=== PATIENT | female | born 1955 | race Caucasian/White ===

== ENCOUNTER → 2023-10-28 08:14 | Outpatient (REF) | payer MEDICARE, OTHER, SELFPAY ==
[2023-10-28 12:44] LABS: ALT (SGPT) 43 U/L (0-35); AST (SGOT) 38 U/L (14-36); Albumin 4.2 g/dl (3.5-5.0); Alkaline Phosphatase 74 U/L (38-126); Blood Urea Nitrogen 20 mg/dl (7-17); Calcium 9.7 mg/dl (8.4-10.2); Carbon Dioxide 30 mmol/L (22-30); Chloride 103 mmol/L (98-107); Glucose 102 mg/dl (70-99); HDL Cholesterol 87 mg/dl; LDL Cholesterol, Calculated 86 mg/dl; Potassium 4.6 mmol/L (3.5-5.1); Sodium 138 mmol/L (135-145); Total Bilirubin 0.5 mg/dl (0.2-1.3); Total Cholesterol 190 mg/dl (50-199); Total Protein 6.9 g/dl (6.3-8.2); Triglyceride 85 mg/dl (10-149); Very Low Density Lipoprotein 17 mg/dl (0-30); eGFR > 60.00
== END ==
LOC: REG 08:14
PROVIDERS: ATTENDING PHYSICIAN Internal Medicine Interventional Cardiology; FAMILY PHYSICIAN Internal Medicine
DX: E78.2 Mixed hyperlipidemia (principal)
CPT/HCPCS: 36415; 80053; 80061

== ENCOUNTER → 2023-11-26 08:49 | Outpatient (REF) | payer MEDICARE, OTHER, SELFPAY | LOC: MRI 3T 08:49 | PROVIDERS: ATTENDING PHYSICIAN Psychiatry & Neurology Behavioral Neurology & Neuropsychiatry; FAMILY PHYSICIAN Internal Medicine | DX: G30.9 Alzheimer's disease, unspecified (principal) | CPT/HCPCS: 70551 ==

== ENCOUNTER 2024-01-16 15:23 | Observation (INO) | payer MEDICARE, OTHER, SELFPAY ==
[2024-01-16] VITALS (10 sets, daily range): BP systolic 109–131; BP diastolic 68–81; BMI 28.3
[2024-01-16 12:39] LABS: Hematocrit 36.8 % (37.0-47.0); Hemoglobin 12.6 g/dL (12.0-16.0); Mean Corp Hgb Conc. 34.2 g/dL (33.0-37.0); Mean Corpuscular Volume 90.6 fL (81.0-99.0); Mean Platelet Volume 9.4 fL (7.4-10.4); Platelet Count 328 10^3/uL (130-400); Red Blood Cell Count 4.06 10^6/uL (4.20-5.40); Red Cell Dist. Width 13.5 % (11.5-14.5); White Blood Cell Count 9.1 10^3/uL (4.8-10.8)
[2024-01-16 12:49] LABS: INR 1.12; PT 14.2 Sec (11.4-14.6)
[2024-01-16 12:53] LABS: % Basophils 1.2 % (0-2); % Eosinophils 0.1 % (0-6); % Immature Granulocytes 0.2 % (0-0.5); % Lymphocytes 66.6 % (20.5-51.1); % Monocytes 6.7 % (1.7-9.3); % Neutrophils 25.2 % (42.2-75.2); Absolute Basophils 0.1 10^3/uL (0-0.2); Absolute Lymphocytes 6.1 10^3/uL (1.2-3.4); Absolute Monocytes 0.6 10^3/uL (0.1-0.6); Absolute Neutrophils 2.3 10^3/uL (1.4-6.5); Nucleated Red Blood Cells % 0 %
[2024-01-16 12:58] LABS: ALT (SGPT) 91 U/L (0-35); AST (SGOT) 51 U/L (14-36); Albumin 3.9 g/dl (3.5-5.0); Alkaline Phosphatase 300 U/L (38-126); Blood Urea Nitrogen 16 mg/dl (7-17); Calcium 9.4 mg/dl (8.4-10.2); Carbon Dioxide 25 mmol/L (22-30); Chloride 103 mmol/L (98-107); Glucose 129 mg/dl (70-99); Potassium 4.8 mmol/L (3.5-5.1); Sodium 134 mmol/L (135-145); Total Bilirubin 0.7 mg/dl (0.2-1.3); Total Protein 7.3 g/dl (6.3-8.2); eGFR > 60.00
[2024-01-16 13:00] LABS: Troponin I < 0.012 ng/ml
[2024-01-16 13:52] LABS: Urine Albumin Negative (Neg - Trace); Urine Bilirubin Negative (Negative); Urine Character Clear (Clear); Urine Color Yellow; Urine Glucose Negative (Negative); Urine Ketone Negative (Negative); Urine Leukocyte Negative (Negative); Urine Nitrite Negative (Negative); Urine Occult Blood Negative (Negative); Urine Urobilinogen Negative (Neg - 1+)
--- NOTE | 2024-01-16 14:27 | ED.GENMED ---
History of Present Illness
General
Chief Complaint: Change in Mental Status
Source: patient and spouse
Exam Limitations: none
Time Seen by Provider: 01/16/24 12:20
Nursing documentation reviewed up to this point in time: agreed with
History of Present Illness
History of Present Illness:
Patient with Alzheimer's disease, presents to ED after she was noted to have right facial droop during scheduled outpatient infusion treatment for her underlying Alzheimer's disease. Per , he does not recall if patient had facial asymmetry
this morning when she woke up. Otherwise, patient herself has no complaints. Denies headache. Denies dizziness. Denies blurred vision. Denies loss of sensation or weakness. Denies difficulty with speech. Of note, for the past 2 weeks, patient
has had fever with increased confusion. has spoken with her primary care physician and patient has completed course of antibiotics, i.e. Macrobid x 7 days. When her symptoms persisted, patient went to local urgent care center where she was
started on different antibiotics, which she is still taking.
Past History
Past History
ED Past Medical History: HTN; Negative Arrthythmia
Social History
Personal:
Living: with family
Review of Systems
Review of Systems
Allergies reviewed?: Yes
All Other Systems: ROS reviewed and negative except as documented in HPI and ROS
Constitutional: Reports fever
EENT: Reports no symptoms
Respiratory: Reports no symptoms
Cardiac: Reports no symptoms
ABD/GI: Reports no symptoms
Musculoskeletal: Reports no symptoms
Skin: Reports no symptoms
Neurological: Reports other (facial droop with increased confusion)
Phy Exam
Physical Exam
Physical Exam:
Physical Exam
General: no apparent distress, not acutely ill. afebrile.
Head: nc/at. eomi
Neck: supple. no meningeal signs.
Heart: s1/s2 regular rate and rhythm, no murmur. equal radial pulses.
Lungs: no acute respiratory distress. clear bilaterally
Abdomen: normal bowel sounds. not tender.
Neuro: alert and oriented. no focal neurological deficits
Skin: no rash
Psychiatric: well kept. interactive and cooperative
Extremities: no edema. no calf tenderness.
Course
Orders/Labs/Results
Orders:
Orders
01/16/24 12:[address] [CT Head W/o Iv Contrast] Urgent
Comment:
Reason For Exam: stroke alert right facial droop
01/16/24 12:29
Complete Blood Count/With Diff Urgent
Comprehensive Metabolic Panel Urgent
Glycohemoglobin (HgbA1c) Urgent
PTT Urgent
Prothrombin Time Urgent
Troponin I Urgent
01/16/24 12:39
Electrocardiogram (*1) Urgent
Reason for Study: TIA/Stroke
EKG- Treatment ONCE
01/16/24 13:25
Urinalysis Reflex To Culture Urgent
Date Specimen was Collected: 01/16/24
Time Specimen was Collected: 13:23
01/16/24 14:26
Aspirin Chewable [Low Strength Aspirin] 324 mg PO NOW STA
01/16/24 14:41
NIH Stroke Scale As Directed
Neurological Checks As Directed
Frequency: Per unit guidelines
01/16/24 14:57
Admit/Transfer Patient As Directed
Co-Sign Provider:
Level of Care: Observation services
Assign to:: Telemetry
Physician / Group: grecia
Diagnosis: CVA
Reason for Telemetry: CVA/TIA
Date to Stop Telemetry: 01/19/24
Time to Stop Telemetry: 11:00
PRN Pain Medication Management As Directed
May give lesser potent ordered pain med per pt: Yes
preference::
Protocol:: Medication orders for pain may be administered in a
manner that supports deferring to patient preference
when the pt is:
- Requesting an ordered lesser potent pain medication.
Least to most potent pain medications are defined
as: acetaminophen < NSAID < tramadol < opioids
(morphine, oxycodone, hydromorphone).
- Requesting a lesser dose of the same medication IF
ORDERED.
- Requesting a less intrusive route of administration
if both routes are prescribed by the provider (PO <
IV).
01/16/24 14:59
Code Status As Directed
Resuscitation Status: Full Code
01/16/24 16:20
Acetaminophen [Tylenol/Feverall] 650 mg RECTAL Q4HPRN PRN
Acetaminophen [Tylenol] 650 mg PO Q4HPRN PRN
01/16/24 16:20
Case Management Consult ONCE
Case Management Consult: Discharge Planning
Comment: stroke/tia
DIETARY CONSULT Routine
Reason for Consult: stroke/TIA
NEUROLOGY CONSULT Urgent
Consulting Provider: Ronald Lopez
Was physician already notified: Yes
Supervisor [place] Urgent
Activity As Directed
Activity Level: As Tolerated
Patient Education As Directed
Type: Stroke education packet
Comment: provide to patient and family
Pneumatic Compression Sleeves As Directed
Type: Thigh high
Swallow Screening CVA/TIA ONLY As Directed
Comment: NPO until swallowing screening completed
If patient FAILS swallow screening:: NPO, Speech Therapy consult, Aspiration Precautions
If patient PASSES swallow screening, diet:: Cholesterol Lowering
Above diet order entered?: Yes- passed screening
Vital Signs As Directed
Frequency: Per unit guidelines
Ot Eval And Treat Routine
Pt Eval And Treat Routine
Activity Level: As Tolerated
Speech Therapy Eval & Treat Routine
DX Deep Vein Thrombosis Video Routine
01/16/24 18:00
Atorvastatin [Lipitor] 40 mg PO QPM
01/16/24 22:00
Cetirizine HCl [Zyrtec] 10 mg PO HS
Donepezil [Aricept] 5 mg PO HS
Sertraline HCl [Zoloft] 25 mg PO HS
01/17/24 05:45
Cardiovascular Evaluation IN AM
Complete Blood Count/No Diff IN AM
01/17/24 07:30
Echo 2D MMode Color/Doppler Routine
Reason for Study: Thrombotic source for stroke-like sxs
01/17/24 08:00
Aspirin Chewable [Low Strength Aspirin] 81 mg PO DAILY
Cholecalciferol (Vitamin D3) [VITAMIN D3 (cholecalciferol)] 25 mcg PO DAILY
Losartan [Cozaar] 25 mg PO DAILY
01/17/24 14:41
MA [place] Routine
Reason For Exam: intracranial stenosis
Recent pill cam endoscopy?: No
MA Neck With Contrast Routine
Reason For Exam: stenosis
Recent pill cam endoscopy?: No
MR Brain Without Contrast Routine
Reason For Exam: Right facial droop ? L hemisphere infarct vs darleen
Recent pill cam endoscopy?: No
01/19/24 11:00
DC Protocol for Telemetry ONCE
Abnormal Lab Results
01/16/24
12:29
RBC 4.06 L 10^6/uL
(4.20-5.40)
Hct 36.8 L %
(37.0-47.0)
Absolute Lymphs (auto) 6.1 H 10^3/uL
(1.2-3.4)
Neutrophils % 25.2 L %
(42.2-75.2)
Lymphocytes % 66.6 H %
(20.5-51.1)
Sodium 134 L mmol/L
(135-145)
Glucose 129 H mg/dl
(70-99)
Hemoglobin A1c 6.5 H %
(4.0-5.6)
AST 51 H U/L
(14-36)
ALT 91 H U/L
(0-35)
Alkaline Phosphatase 300 H U/L
(38-126)
01/16/24 12:29
01/16/24 12:29
Vital Signs
Initial and Last Documented VS:
Initial Vital Signs
Temp Pulse Resp BP Pulse Ox
97.7 F 99 16 113/78 95
01/16/24 12:01 01/16/24 12:01 01/16/24 12:01 01/16/24 12:01 01/16/24 12:01
Last Documented Vital Signs
Temp Pulse Resp BP Pulse Ox
97.5 F 90 20 131/85 98
01/17/24 12:49 01/17/24 12:49 01/17/24 12:49 01/17/24 12:49 01/17/24 12:49
MDM/Problems Addressed
MDM/Problems Addressed:
Stroke alert activated immediately upon arrival, after initial evaluation. Patient also evaluated at bedside by Dr. Lopez, neurology.
CT head: No acute disease
History and exam concerning for possible CVA, with persistent mild right facial droop. Patient is not a candidate for TNKase treatment, secondary to low NIH score, as well as unclear time of onset of symptoms.
Dr. Lopez recommends admission for further evaluation and treatment, along with starting patient on aspirin only.
*Critical Care Note
Total Time (30-74mins, 75-104mins- exclusive of procedures): Not Applicable
ED Attending Note
-
Portions of this chart may have been created with voice recognition software.� Occasional wrong word or��sound alike� substitutions may have occurred due to the inherent limitations of voice recognition software.
Discharge Plan
Departure
Patient Disposition: Admit
Date of Disposition: 01/16/24
Time of Disposition: 14:46
Admit to: Telemetry
Presentation/result/management discussed w/ accepting MD/DO: Hospitalist
Discharge Problem:
Facial droop
Interventions
Interventions:
*Risk Screen - Suicide Last Done: 01/16/24 12:22
*General Assessment Last Done: 01/16/24 12:01
*Neglect/Abuse Screening Last Done: 01/16/24 12:22
ED- Fall Risk Assessment Last Done: 01/16/24 12:22
*ED COVID-19 Vaccine History Last Done: 01/16/24 12:01
*Nursing Disposition Last Done: 01/16/24 16:26
ED- Pulmonary Assessment Last Done: 01/16/24 12:22
ED-Psychological Assessment Last Done: 01/16/24 16:27
ED- Neurological Assessment Last Done: 01/16/24 12:22
ED- Cardiac Assessment Last Done: 01/16/24 12:22
ED Swallowing Screen Last Done: 01/16/24 15:00
Discharge Date and Time
Discharge Date/Time: 01/16/24 16:28
--- NOTE | 2024-01-16 14:34 | HPS.HSE ---
Addendum entered and electronically signed by Tej Helton MD 01/16/24 15:16:
I saw and examined the patient.
The ELEVATED WORK PLATFORM OPERATOR's note was reviewed and I agree with the note.
Comment:
68-year-old female past medical history of Alzheimer early onset dementia follows with [facility] neurologist Dr. Vee and was due to receive IV infusion for Lecanemab afterward that was not preceded. Patient with facial droop noticed by spouse
and thus decided to come into the ER. Patient was not a TNK candidate. No other focal neurological deficit. Patient remains pleasantly confused. Right-sided facial droop persist. CT head in the ER was negative.
General: Well Developed, Well Nourished and No Apparent Distress
HEENT: NormoCephalic, Moist mucous membranes and Atraumatic
Respiratory: Clear
Cardiac: S1/S2 and Regular Rhythm; No Murmur or Rub
GI: Soft, Non Tender, Non Distended and Normal Bowel Sounds; No Organomegaly
Rectal: Deferred by Provider
Musculoskeletal: No Clubbing, No Cyanosis and No Edema
Skin: No Rash
Neuro: AO x 3, Nonfocal/grossly intact and Other (Right facial droop)
Psych: Calm
Impression
New right-sided facial droop likely secondary TIA rule out CVA
Alzheimer's dementia
Primary hypertension
Mood disorder
Mild transaminitis
Plan
MRI ordered per neurology
Monitor on telemetry
Stroke scale and neurochecks
Aspirin ordered
Permissive hypertension
DVT ppx-scds for now
I spent a total of 78 minutes with the patient or on the floor. More than 50% of this time involved counseling and coordination of care.
Original Note:
Family Physician
-
Family Physician: Marshall Morel
Chief Complaint
-
right facial droop
History of Present Illness
68 year old with PMH for Alzheimer's disease, HTN, hyperlipidemia, dementia presented to us with right facial droop during scheduled outpatient infusion treatment for her underlying Alzheimer's disease. As per she complained of headache
this morning. She also stated dizziness with head position change. A week and half ago she was noted to have confusion and was not making any sense to all, which improved its on . Patient denied blurry vision, numbness, tingling .patient denied
chest pain or short of breath patient denied any focal weakness .patient denied abdominal pain, nausea, vomiting, diarrhea. Patient denied dysuria hematuria. patient has completed course of antibiotics, i.e. Macrobid x [address] with no acute findings. Admitting for further management
Medical History
Past Medical History
Past Medical History: Reports Other
Additional Past Medical History:
palpitation
Alzheimer disease
hld
dementia
HTN
type 2 DM
asthma
fibromyalgia
basal cell c
osteopenia
Past Surgical History: Reports None
Additional Past Surgical History:
Social History
Tobacco: Non-smoker
Alcohol: None
Drug: None
Family History
Family History: Not pertinent
Allergies / Home Medications
Allergies reflects when Allergies were last updated in [employer].
Home Medications with original date entered in [employer]
Allergy/Medication List:
Allergies
Allergy/AdvReac Type Severity Reaction Status Date / Time
aspirin [Aspirin] Allergy Unknown Verified 01/16/24 12:08
latex [Latex] Allergy Itching Verified 01/16/24 12:08
Penicillins Allergy Unknown Verified 01/16/24 12:08
sulfamethoxazole Allergy Rash Verified 01/16/24 12:08
[From Bactrim]
trimethoprim [From Bactrim] Allergy Rash Verified 01/16/24 12:08
environmental Allergy Unknown Uncoded 01/16/24 12:08
wheat Allergy Pharmacy Uncoded 01/16/24 12:08
to Review
Home Medications
Feosol 65 mg PO DAILY 10/21/09
aspirin 81 mg tablet,delayed release 81 mg PO DAILY 10/21/09
cetirizine 10 mg capsule (Zyrtec) 10 mg PO HS 10/21/09
ciclesonide 50 mcg nasal spray (Omnaris) 1 intranasal BID 10/21/09
cimetidine 300 mg tablet 300 mg PO BID 10/21/09
flaxseed oil 1,000 mg capsule 1,000 mg PO BID 10/21/09
glucosamin 375 mg-chond 300 mg-collagen 50 mg-hyaluronic acid 2 mg cap 1 cap PO DAILY 10/21/09
lisinopril 10 mg tablet 10 mg PO HS 10/21/09
multivitamin,Ca,min-folic acid-herbal no.160 100 mcg tablet 100 mcg PO DAILY 10/21/09
norethindrone acetate 0.5 mg-ethinyl estradiol 2.5 mcg tablet (Femhrt Low Dose) 1 tab PO 10/21/09
prednisolone 5 mg tablet 10 mg PO DAILY 10/21/09
simvastatin 10 mg tablet 10 mg PO QPM 10/21/09
therapeutic multivitamin (Therapeutic tablet) 1 tab PO DAILY 10/21/09
wheat dextrin (with aspartame) 3 gram/6 gram oral powder packet (Benefiber s/f (wheat dextrin)) 1 ea PO DAILY 10/21/09
Review of Systems
-
Constitutional: Reports No Symptoms
EENT: Reports No Symptoms
Respiratory: Reports No Symptoms
Cardiac: Reports No Symptoms
Abdomen/GI: Reports No Symptoms
: Reports No Symptoms
Musculoskeletal: Reports No Symptoms
Skin: Reports No Symptoms
Neurological: Reports No Symptoms, Dizzy, Headache and Other (facial droop)
Endocrine: Reports No Symptoms
Hematologic/Lymphatic: Reports No Symptoms
Psych: Reports No Symptoms
Physical Exam
Vital Signs
Vital Signs
Temp Pulse Resp BP Pulse Ox
97.7 F 91 21 109/69 93
01/16/24 12:01 01/16/24 13:00 01/16/24 13:00 01/16/24 13:00 01/16/24 13:00
Physical Exam
General: Well Developed, Well Nourished and No Apparent Distress
HEENT: NormoCephalic, Moist mucous membranes and Atraumatic
Respiratory: Clear
Cardiac: S1/S2 and Regular Rhythm; No Murmur or Rub
GI: Soft, Non Tender, Non Distended and Normal Bowel Sounds; No Organomegaly
Rectal: Deferred by Provider
Musculoskeletal: No Clubbing, No Cyanosis and No Edema
Skin: No Rash
Neuro: AO x 3, Nonfocal/grossly intact and Other (Right facial droop)
Psych: Calm
Laboratory Results
-
01/16/24 12:29
01/16/24 12:29
Laboratory Results
PT 14.2 Sec (11.4-14.6) 01/16/24 12:29
INR 1.12 01/16/24 12:29
APTT 30.0 Sec (23.4-35.0) 01/16/24 12:29
Total Bilirubin 0.7 mg/dl (0.2-1.3) 01/16/24 12:29
AST 51 U/L (14-36) H 01/16/24 12:29
ALT 91 U/L (0-35) H 01/16/24 12:29
Alkaline Phosphatase 300 U/L (38-126) H 01/16/24 12:29
Troponin I < 0.012 ng/ml 01/16/24 12:29
Data Reviewed
-
CT Scan: Report Reviewed by me
Lab Data: Labs Reviewed by me
Impression/Plan
-
#right facial droop r/o acute CVA
-CT hed negative
-no a candidate for TNK
-asa initiated
-MRI/MRA
-statin,asa
-obtain a1c, lipid profile
-PT/OT
-neuro following
#chronic LFT elevation
-AST 51,ALT 91, ALk 300
-continue to trend
#hxt of alzhmiers disease/Dementia
-aricept continued
#essential htn
-losartan continued with hold parameters
#HLD
statin
#DVT Prophylaxis
-scd
#CODE status
-full code
--- NOTE | 2024-01-16 14:42 | CON.NEURO4 ---
Consultation - Neurology 4
-
CONSULTING PHYSICIAN: Delano Lopez
REFERRING PHYSICIAN: ER
DICTATED BY: Delano Lopez
DATE/TIME OF REQUEST: 01/16/24
DATE/TIME OF CONSULTATION: 01/16/24
Reason for Consultation: Stroke alert right facial droop
History of Present Illness:
Patient is a 68-year-old woman with past ministry of Alzheimer's disease and hypertension presented to hospital with right facial droop.
Patient has been having daily fevers starting around 7 to 10 days ago and had course of Macrobid and then Amoxicillin, no obvious infectious source.
Patient has been receiving Lecanemeb infusions and has received 7 so far and was scheduled for an 8 confusion this morning. She has not had any complications or issues with this so far.
No history of stroke or TIA previously.
She has been a bit more confused with walking difficulty since going through this febrile illness that has not had fever for about the past 3 to 4 days per her . Unclear onset of right facial droop but was noted by healthcare providers when
she went to go get her Lecanemab infusion, is not quite sure when this started but does seem to be not her norm according to him.
Patient with no complaint of headache at this time.
Past Medical History: Alzheimer's disease on Lecanemab infusions, hypertension
Surgical History: C section
Family History: Non-contributory
Social History: and lives at home no tobacco or alcohol
Review of Symptoms:
Patient denies any fever, headache, chest pain, shortness of breath, GI or symptoms.
Physical Exam:
Well-appearing middle-aged woman no acute distress no head trauma oropharynx is clear neck supple, heart rate regular breathing unlabored abdomen soft nontender no lower extremity edema
Neurologic Examination:
The patient is awake, alert and oriented x 3. She is able to follow commands and answer questions appropriately. There is no aphasia or dysarthria. On cranial nerve assessment, pupils are 3 mm bilateral, round and reactive to light and
accommodation. Visual meade are full. Extraocular movements are intact. Facial sensations are intact and bilaterally symmetrical, right facial droop is present. Hearing is intact bilaterally to normal conversation volume. Tongue palate and uvula
are midline. Sternocleidomastoid strengths are full bilaterally. Motor strengths are 5/5 bilateral upper and lower extremities on medical research [place] scale. There is no drift or involuntary movement noted. Deep tendon reflexes are 2+ bilateral
upper and lower extremities and Babinski is absent bilaterally. Sensations of pain, touch, temperature and vibration are intact and bilaterally symmetrical. There was no extinction noted on double simultaneous stimulation. Coordination is intact by
finger to nose bilaterally.
Neuro Imaging: CT head non contrast no hemorrhage
Impressions
1. New right lower facial droop concerning for ischemic stroke, not consistent with Spencer's palsy.
2. Alzheimer's disease being treated with Lecanemab infusions
3. Hypertension
Not a thrombolytic candidate due to unclear onset of symptoms as well as minor symptoms with NIH stroke scale of 1 not an IAT candidate
Recommendations:
1. Give aspirin 325 and continue on aspirin 81 mg daily. Would not pursue DAPT given Lecanemab has small risks of intracranial bleeding, pursue single antiplatelet only.
2. Permissive hypertension goal less than 220/120 until tomorrow morning
3. Monitor for fever
4. Neurologic checks NIH stroke scale
5. Cardiac telemetry and check TTE
6. MRI brain, MRA head and neck
7. Speech therapy evaluation
8. Lipid panel and HbA1c
Discussed patient care with: Patient and her
NIH Stroke Score
Subsequent NIH Scale
Date of Subsequent NIH Scale: 01/16/24
Time of Subsequent NIH Scale: 13:00
NIH Stroke Score
Level of Consciousness: 0 - Alert
LOC Questions: 0-Answers both correctly
LOC Commands: 0-Performs both correctly
Best Horizontal Gaze: 0-Normal
Visual Meade: 0=Normal, no visual loss
Facial Palsy: 1=Minor paralysis
Motor - Right Arm: 0=No drift 10 seconds
Motor - Left Arm: 0=No drift 10 seconds
Motor - Right Le-No drift 5 seconds
Motor - Left Le-No drift 5 seconds
Limb Ataxia: 0-Absent
Sensation: 0-Normal
Best Language: 0-No aphasia
Dysarthria: 0-Normal
Extinction and Inattention: 0-No abnormality
Total Score:: 1
Home Medications
-
Home Medications
Feosol 65 mg PO DAILY 10/21/09
aspirin 81 mg tablet,delayed release 81 mg PO DAILY 10/21/09
cetirizine 10 mg capsule (Zyrtec) 10 mg PO HS 10/21/09
ciclesonide 50 mcg nasal spray (Omnaris) 1 intranasal BID 10/21/09
cimetidine 300 mg tablet 300 mg PO BID 10/21/09
flaxseed oil 1,000 mg capsule 1,000 mg PO BID 10/21/09
glucosamin 375 mg-chond 300 mg-collagen 50 mg-hyaluronic acid 2 mg cap 1 cap PO DAILY 10/21/09
lisinopril 10 mg tablet 10 mg PO HS 10/21/09
multivitamin,Ca,min-folic acid-herbal no.160 100 mcg tablet 100 mcg PO DAILY 10/21/09
norethindrone acetate 0.5 mg-ethinyl estradiol 2.5 mcg tablet (Femhrt Low Dose) 1 tab PO 10/21/09
prednisolone 5 mg tablet 10 mg PO DAILY 10/21/09
simvastatin 10 mg tablet 10 mg PO QPM 10/21/09
therapeutic multivitamin (Therapeutic tablet) 1 tab PO DAILY 10/21/09
wheat dextrin (with aspartame) 3 gram/6 gram oral powder packet (Benefiber s/f (wheat dextrin)) 1 ea PO DAILY 10/21/09
Vital Signs / Labs
-
Vital Signs and Labs:
Temp Pulse Resp BP Pulse Ox
97.7 F 91 21 109/69 93
01/16/24 12:01 01/16/24 13:00 01/16/24 13:00 01/16/24 13:00 01/16/24 13:00
01/16/24 12:29
01/16/24 12:29
01/16/24
12:29
RBC 4.06 L
Hct 36.8 L
Absolute Lymphs (auto) 6.1 H
Neutrophils % 25.2 L
Lymphocytes % 66.6 H
Sodium 134 L
Glucose 129 H
AST 51 H
ALT 91 H
Alkaline Phosphatase 300 H
--- NOTE | 2024-01-16 15:16 | W.PN.UPDATE ---
Update Note
Progress Note Update
FOR BILLING PURPOSE ONLY
[2024-01-16] MEDS: LOW STRENGTH ASPIRIN 324 MG PO (15:25)
--- NOTE | 2024-01-16 16:55 | PTCARENOTE ---
Patient admitted to room 405-01 from the ER. Admission questions asked with assistance of . Vital signs stable. Denies pain. NIH total is 2 for right sided facial droop. Reviewed plan with patient and . Educated on use of call proctor,
bed and television controls. Patient and verbalize understanding of all teaching.
--- NOTE | 2024-01-16 17:49 | PTCARENOTE ---
[facility] supervisory aide not available. Left name and contact information to call me back for report.
[2024-01-16] MEDS: LIPITOR 40 MG PO (18:18)
[2024-01-16] MEDS: ZOLOFT 25 MG PO (20:53)
[2024-01-16] MEDS: ARICEPT 5 MG PO (20:53)
[2024-01-16] MEDS: ZYRTEC 10 MG PO (20:53)
[2024-01-17 03:40] VITALS: BP 135/82
[2024-01-17 06:54] VITALS: BP 125/83
[2024-01-17 07:23] LABS: Hematocrit 37.1 % (37.0-47.0); Hemoglobin 12.7 g/dL (12.0-16.0); Mean Corp Hgb Conc. 34.2 g/dL (33.0-37.0); Mean Corpuscular Hgb 31.7 pg (27.0-31.0); Mean Corpuscular Volume 92.5 fL (81.0-99.0); Mean Platelet Volume 9.9 fL (7.4-10.4); Platelet Count 324 10^3/uL (130-400); Red Blood Cell Count 4.01 10^6/uL (4.20-5.40); Red Cell Dist. Width 13.5 % (11.5-14.5); White Blood Cell Count 7.4 10^3/uL (4.8-10.8)
[2024-01-17] MEDS: COZAAR 25 MG PO (08:12)
[2024-01-17] MEDS: LOW STRENGTH ASPIRIN 81 MG PO (08:12)
[2024-01-17] MEDS: VITAMIN D3 (cholecalciferol) 25 MCG PO (08:12)
[2024-01-17 08:25] LABS: HDL Cholesterol 34 mg/dl; LDL Cholesterol, Calculated 84 mg/dl; Total Cholesterol 151 mg/dl (50-199); Triglyceride 166 mg/dl (10-149); Very Low Density Lipoprotein 33 mg/dl (0-30)
[2024-01-17 09:28] LABS: Folate > 20.0 ng/ml (2.76-20); Vitamin B12 958 pg/ml (239-931)
[2024-01-17 09:54] LABS: TSH Reflex To Free T4 2.08 uIU/ml (0.47-4.68)
[2024-01-17 10:51] VITALS: BP 124/79; PULSE 105; O2SAT 96
[2024-01-17 11:12] LABS: Glycohemoglobin (HgbA1c) 6.5 % (4.0-5.6)
[2024-01-17 12:49] VITALS: BP 131/85
--- NOTE | 2024-01-17 14:03 | W.PN.HOSP.TC ---
Addendum entered and electronically signed by Tej Helton MD 01/17/24 18:40:
Patient MRA resulted. Discussed case with neurology plan will be to continue aspirin 81 mg daily. Discussed results with spouse over the phone in detail as patient with Alzheimer's dementia and forgetful of events. All agreed for discharge home
with outpatient follow-up with patient primary neurologist.
More than 30 minutes spent in discharge including
Final examination of the patient
Summarizing hospital stay
Instructions for continuing care to all relevant caregivers
Preparation of discharge records, prescriptions, and referral forms
Total time spent (in minutes): 53
Original Note:
Today's Communication/Plan
-
Dispo pending MRA and echo and neurology recs
Assessment / Plan
Assessment / Plan
General: Well Developed, Well Nourished and No Apparent Distress
HEENT: NormoCephalic, Moist mucous membranes and Atraumatic
Respiratory: Clear
Cardiac: S1/S2 and Regular Rhythm; No Murmur or Rub
GI: Soft, Non Tender, Non Distended and Normal Bowel Sounds; No Organomegaly
Rectal: Deferred by Provider
Musculoskeletal: No Clubbing, No Cyanosis and No Edema
Skin: No Rash
Neuro: Awake but no alert or oriented. Apparent dementia. Nonfocal/grossly intact and Other (Right facial droop)
Psych: Calm
#right facial droop likely 2/2 T[address] head negative
-no a candidate for TNK
-asa initiated
-MRI brain negative for acute CVA. MRA pending.
-statin,asa
-PT/OT-outpatient therapy
-tolerating diet.
-neuro following
#chronic LFT elevation
-AST 51,ALT 91, ALk 300
-continue to trend
#hxt of alzhmiers disease/Dementia
-aricept continued
#essential htn
-losartan continued with hold parameters
#HLD
statin
#Prediabets
a1c at 6.5
OP f/u-can benefit from metformin.
#DVT Prophylaxis
-scd
#CODE status
-full code
Discussed with patient spouse
Dispo pending MRI and echo and neurology recs
Anticipated Discharge: Today
Subjective/Interval History
-
Date of Service: January 17, 2024
eating lunch without any difficulty
denies any complaints
Objective Data
-
Labs:
Laboratory Results
01/17/24
05:45
WBC 7.4
Hgb 12.7
Hct 37.1
Plt Count 324
Vital Signs:
Vital Signs
Temp Pulse Resp BP Pulse Ox
97.5 F 90 20 131/85 98
01/17/24 12:49 01/17/24 12:49 01/17/24 12:49 01/17/24 12:49 01/17/24 12:49
I&O
01/16/24 01/17/24 01/18/24
06:59 06:59 06:59
Intake Total 480 / 480
Balance 480 / 480
Data Reviewed
-
Total Time Spent with Patient (in minutes): 56
--- NOTE | 2024-01-17 15:09 | CM ---
Addendum entered by Amber Martínez 01/17/24 15:11:
Upon further review of medical record, dx of alzheimer's dementia; did not mention this, as he did not want to upset Jenise. advised Jenise is not alone at home at any time.Plan remains the same; no needs at this time.
Original Note:
CM met with Jenise and her to complete IA. They live together in a 2 story home with 18 steps to enter. Both patient and her are (I) amb and adl's. No DME in the home per .
Plan: Anticipate discharge to home with no needs.
--- NOTE | 2024-01-17 15:11 | W.PN.UPDATE ---
Update Note
Progress Note Update
MRI of brain results by radiologist:
1. No MRI evidence for acute infarct or intracranial hemorrhage.
2. Moderate to severe bilateral temporal lobe volume loss consistent with ALZHEIMER'S DISEASE.
MRA of head and neck results by radiologist:
1. Moderate calcific atherosclerotic plaque in both intracranial internal carotid arteries causing 50-70% diameter stenosis on the right and less than 50% diameter stenosis on the left.
2. 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
3. Severely tortuous vertebral and basilar arteries.
4. No MRA evidence for large vessel arterial stenosis or occlusion in the posterior intracranial circulation.
Based on the results above, the patient does not have evidence of an acute stroke and therefore the patient should continue the use of aspirin 81 mg routinely.
Patient should have the goal of normotension at this time
No indication at this time patient would benefit from neurosurgical evaluation of the aneurysm less than 7 mm demonstrated in the right carotid artery. Reevaluation of the right internal carotid artery should take place in December 2024 for comparison.
Patient may continue Lecanumab.
Patient should have follow-up with her usual outpatient neurologist.
--- NOTE | 2024-01-17 15:35 | W.DCSUMMARY ---
Discharge Summary
Discharge Data
Date of Admission: 01/16/24
Date of Discharge: 01/17/24
-
Pending Results: No
Hospital Course
68 female past medical history of Alzheimer dementia, primary hypertension, hyperlipidemia who is presenting from home with facial droop. Patient was stroke alert. Patient was evaluated by neurology in the ER. Patient was not a TNK candidate. CT
of the head on admission was negative. MRI of the brain was negative for acute stroke. No MRA evidence for internal carotid artery stenosis or occlusion. No MRA evidence for vertebral artery stenosis or occlusion. 2 mm saccular aneurysm protruding
inferiorly from the clinoid segment of the right internal carotid artery. Neurology recommended patient to be continued on aspirin on discharge. Also recommended, No indication at this time patient would benefit from neurosurgical evaluation of
the aneurysm less than 7 mm demonstrated in the right carotid artery. Reevaluation of the right internal carotid artery should take place in December 2024 for comparison. Patient was evaluated by PT and OT. Patient's spouse was updated about imaging
study results and follow-up with patient primary neurologist. Patient to be discharged home.
Discharge Plan
-
Patient Disposition: Home (Routine Discharge)
Discharge Diagnosis/Procedures: Facial droop likely 2/2 TIA
Condition: Fair
Diet: Low Cholesterol
Activity: With assistance and As tolerated
Driving Restrictions: No driving
Activity Restrictions/Additional Instructions:
No indication at this time patient would benefit from neurosurgical evaluation of the aneurysm less than 7 mm demonstrated in the right carotid artery. Reevaluation of the right internal carotid artery should take place in December 2024 for comparison.
Follow-up with your primary neurologist at [facility].
Referrals:
Marshall Morel MD [Family Provider] - in less than 1 week
Prescriptions:
New
aspirin 81 mg Tablet,Chewable
81 mg PO DAILY Qty: 30 0RF
Continued
donepezil 5 mg Tablet
5 mg PO HS
cetirizine [Zyrtec] 10 mg Tablet
10 mg PO HS
simvastatin 5 mg Tablet
5 mg PO HS
losartan 25 mg Tablet
25 mg PO DAILY
sertraline 25 mg Tablet
25 mg PO HS
cholecalciferol (vitamin D3) [Vitamin D3] 25 mcg (1,000 unit) Tablet
25 mcg PO DAILY
Discharge Orders:
Discharge Patient (As Directed); Ordered 01/17/24
Ordered By: Tej Helton
Discharge Date and Time
Discharge Date/Time: 01/17/24 06:15
Print Language: UKRAINIAN
[2024-01-17 15:55] VITALS: BP 113/65
--- NOTE | 2024-01-17 18:01 | PTCARENOTE ---
Discharge instructions reviewed with patient and . Both verbalize understanding teaching. Removed peripheral IV. Medical record release forms completed to send to [facility] neurologist. will transport patient home.
[2024-01-17] MEDS: LIPITOR 40 MG PO (18:07)
[2024-01-18 09:00] LABS: Glycohemoglobin (HgbA1c) 6.5 % (4.0-5.6)
== END 2024-01-17 06:15 | disposition home or self-care (01) ==
LOC: 4 EAST ACU 15:23
PROVIDERS: Registered Nurse; ADMITTING PHYSICIAN Hospitalist; CONSULT PHYSICIAN Student in an Organized Health Care Education/Training Program; EMERGENCY PHYSICIAN Emergency Medicine; FAMILY PHYSICIAN Internal Medicine
DX: R29.810 Facial weakness (principal); R41.82 Altered mental status, unspecified; I67.1 Cerebral aneurysm, nonruptured; F02.83 Dementia in other diseases classified elsewhere, unspecified severity, with mood disturbance; G30.9 Alzheimer's disease, unspecified; R26.2 Difficulty in walking, not elsewhere classified; R50.9 Fever, unspecified; I77.1 Stricture of artery; I11.9 Hypertensive heart disease without heart failure; R74.01 Elevation of levels of liver transaminase levels; E78.5 Hyperlipidemia, unspecified; R79.89 Other specified abnormal findings of blood chemistry; E11.9 Type 2 diabetes mellitus without complications; J45.909 Unspecified asthma, uncomplicated; M79.7 Fibromyalgia; M85.80 Other specified disorders of bone density and structure, unspecified site; Z88.6 Allergy status to analgesic agent; Z88.1 Allergy status to other antibiotic agents; Z91.040 Latex allergy status; Z88.0 Allergy status to penicillin; Z88.2 Allergy status to sulfonamides; Z91.018 Allergy to other foods; Z79.82 Long term (current) use of aspirin
CPT/HCPCS: 70450; 70544; 70548; 70551; 80053; 80061; 81003; 82607; 82728; 82746; 83036; 84443; 84484; 85025; 85027; 85610; 85730; 93005; 93306; 97162; 97166; 99285; A9585; G0378

== ENCOUNTER → 2024-08-04 09:11 | Outpatient (REF) | payer MEDICARE, OTHER, SELFPAY | LOC: WDC 09:11 | PROVIDERS: ATTENDING PHYSICIAN Obstetrics & Gynecology Gynecology; FAMILY PHYSICIAN Internal Medicine | DX: Z12.39 Encounter for other screening for malignant neoplasm of breast (principal); Z12.31 Encounter for screening mammogram for malignant neoplasm of breast | CPT/HCPCS: 77063; 77067 ==

== ENCOUNTER → 2024-11-04 06:38 | Outpatient (REF) | payer MEDICARE, OTHER, SELFPAY | LOC: PAVMRI 06:38 | PROVIDERS: ATTENDING PHYSICIAN Psychiatry & Neurology Behavioral Neurology & Neuropsychiatry; FAMILY PHYSICIAN Internal Medicine | DX: G30.9 Alzheimer's disease, unspecified (principal) | CPT/HCPCS: 70551 ==

== ENCOUNTER → 2024-11-21 08:01 | Outpatient (REF) | payer MEDICARE, OTHER, SELFPAY ==
[2024-11-21 08:50] LABS: % Basophils 0.5 % (0-2); % Eosinophils 2.1 % (0-6); % Immature Granulocytes 0.2 % (0-0.5); % Lymphocytes 21.7 % (20.5-51.1); % Monocytes 7.5 % (1.7-9.3); Absolute Eosinophils 0.1 10^3/uL (0-0.7); Absolute Lymphocytes 1.3 10^3/uL (1.2-3.4); Absolute Monocytes 0.5 10^3/uL (0.1-0.6); Absolute Neutrophils 4.2 10^3/uL (1.4-6.5); Hematocrit 40.9 % (37.0-47.0); Hemoglobin 13.8 g/dL (12.0-16.0); Mean Corp Hgb Conc. 33.7 g/dL (33.0-37.0); Mean Corpuscular Hgb 31.4 pg (27.0-31.0); Mean Corpuscular Volume 93.2 fL (81.0-99.0); Mean Platelet Volume 9.9 fL (7.4-10.4); Nucleated Red Blood Cells % 0 %; Platelet Count 311 10^3/uL (130-400); Red Blood Cell Count 4.39 10^6/uL (4.20-5.40); Red Cell Dist. Width 12.2 % (11.5-14.5); White Blood Cell Count 6.1 10^3/uL (4.8-10.8)
[2024-11-21 09:19] LABS: Glycohemoglobin (HgbA1c) 6.3 % (4.0-5.6)
[2024-11-21 09:23] LABS: ALT (SGPT) 24 U/L (0-35); AST (SGOT) 24 U/L (14-36); Albumin 4.4 g/dl (3.5-5.0); Alkaline Phosphatase 68 U/L (38-126); Blood Urea Nitrogen 22 mg/dl (7-17); Calcium 9.8 mg/dl (8.4-10.2); Carbon Dioxide 27 mmol/L (22-30); Chloride 110 mmol/L (98-107); Glucose 124 mg/dl (70-99); HDL Cholesterol 71 mg/dl; LDL Cholesterol, Calculated 115 mg/dl; Potassium 4.8 mmol/L (3.5-5.1); Sodium 144 mmol/L (135-145); Total Bilirubin 0.5 mg/dl (0.2-1.3); Total Cholesterol 213 mg/dl (50-199); Total Protein 7.1 g/dl (6.3-8.2); Triglyceride 138 mg/dl (10-149); Very Low Density Lipoprotein 27 mg/dl (0-30); eGFR > 60.00
[2024-11-21 09:37] LABS: Vitamin D, 25-OH*** 40.9 ng/mL (30-80)
[2024-11-21 09:51] LABS: TSH 2.15 uIU/ml (0.47-4.68)
== END ==
LOC: REG 08:01
PROVIDERS: ATTENDING PHYSICIAN Internal Medicine Interventional Cardiology; FAMILY PHYSICIAN Internal Medicine; REFERRING PHYSICIAN Obstetrics & Gynecology Gynecology
DX: E78.2 Mixed hyperlipidemia (principal); I67.1 Cerebral aneurysm, nonruptured; E78.5 Hyperlipidemia, unspecified; R73.01 Impaired fasting glucose; R79.89 Other specified abnormal findings of blood chemistry
CPT/HCPCS: 36415; 80053; 80061; 82306; 83036; 84443; 85025

== ENCOUNTER → 2024-11-29 07:36 | Outpatient (REF) | payer MEDICARE, OTHER, SELFPAY | LOC: PAVMRI 07:36 | PROVIDERS: ATTENDING PHYSICIAN Internal Medicine | DX: I67.1 Cerebral aneurysm, nonruptured (principal) | CPT/HCPCS: 70546; A9585 ==

== ENCOUNTER → 2025-05-21 13:25 | Outpatient (REF) | payer MEDICARE, OTHER, SELFPAY | LOC: MRI 3T 13:25 | PROVIDERS: ATTENDING PHYSICIAN Psychiatry & Neurology Behavioral Neurology & Neuropsychiatry; FAMILY PHYSICIAN Internal Medicine | DX: G30.9 Alzheimer's disease, unspecified (principal) | CPT/HCPCS: 70551 ==